=== PATIENT | female | born 1975 | race Caucasian/White ===

== ENCOUNTER 2020-08-16 07:00 | Inpatient (IN) | payer BC ==
[2020-08-16] MEDS ORDERED: Misoprostol 50 MCG (1/2 of 100 MCG) Tab VAG ONE ×2 (07:39→12:00)
[2020-08-16] MEDS ORDERED: ePHEDrine 50 MG/ML SDV IVPUSH PRN ×2 (08:25)
[2020-08-16] MEDS ORDERED: Sodium Chloride 0.9% 10 ML Syringe FLUSH PRN (08:25)
[2020-08-16] MEDS ORDERED: Ondansetron 4 MG/2 ML SDV IV PRN (08:25)
[2020-08-16] MEDS ORDERED: diphenhydrAMINE 50 MG/ML SDV IVPUSH PRN ×2 (08:25)
[2020-08-16] MEDS ORDERED: Naloxone 0.4 MG/ML SDV IVPUSH PRN (08:25)
[2020-08-16] MEDS ORDERED: Acetaminophen 325 MG Tab PO PRN (08:25)
[2020-08-16] MEDS ORDERED: Ropivacaine 200 MG in Premix Bag 1 BAG EPIDUR SCH (08:30)
--- NOTE | 2020-08-16 08:35 | PCM.LDHP ---
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: Social & Family History - Family History Family Medical History: No Pertinent Family History - Tobacco Use Tobacco Use Status *Q: Never Tobacco User - Caffeine Use Caffeine Use: Reports: Coffee H&P Review of Systems - Review of Systems: Review Of Systems: See Below General: Reports: No Symptoms HEENT: Reports: No Symptoms Pulmonary: Reports: No Symptoms Cardiovascular: Reports: No Symptoms Gastrointestinal: Reports: No Symptoms Genitourinary: Reports: No Symptoms Musculoskeletal: Reports: No Symptoms Skin: Reports: No Symptoms Psychiatric: Reports: No Symptoms Neurological: Reports: No Symptoms Hematologic/Lymphatic: Reports: No Symptoms Immunologic: Reports: No Symptoms L&D Exam - Exam Exam: See Below - OB Specific Contraction Intensity: Mild Movement: Active Heart Tones: Present Heart Rate (FHR) Variability: Moderate (6-25 bmp) Presentation: Vertex - Yo Score Yo Score Cervix Position: Midposition Yo Score Consistency: Soft Yo Score Effacement: 51-70% Yo Score Dilation: 1-2 cm Yo Score 's Station: -2 Yo Score Total: 7 - Exam General: Alert, Oriented, Cooperative HEENT: PERRLA, Conjunctiva Clear, EACs Clear, EOMI, Hearing Intact, Mucosa Moist & [place], Nares Patent, Normal Nasal Septum, Posterior Pharynx Clear, TMs Clear Neck: Supple, Trachea Midline Lungs: Clear to Auscultation, Normal Respiratory Effort Cardiovascular: Regular Rate, Regular Rhythm GI/Abdominal Exam: Normal Bowel Sounds, Soft, Non-Tender, No Organomegaly, No Distention, No Abnormal Bruit, No Mass, Pelvis Stable Rectal Exam: Normal Exam, Normal Rectal Tone Genitourinary: Normal external exam, Normal bimanual exam, Normal speculum exam Back Exam: Normal Inspection, Full Range of Motion Extremities: Normal Inspection, Normal Range of Motion, Non-Tender, No Pedal Edema, Normal Capillary Refill Skin: Warm, Dry, Intact Neurological: Cranial Nerves Intact, Reflexes Equal Bilateral Psychiatric: Alert, Normal Affect, Normal Mood - Patient Data Lab Results Last 24 hrs: Laboratory Results - last 24 hr 08/16/20 08/16/20 08/16/20 Range/Units 07:06 07:07 07:24 WBC 9.0 (4.5-11.0) K/uL RBC 4.60 (3.30-5.50) M/uL Hgb 10.6 L (12.0-15.0) g/dL Hct 35.4 L (36.0-48.0) % MCV 77 L (80-98) fL MCH 23 L (27-31) pg MCHC 30 L (32-36) % Plt Count 261 (150-400) K/uL Neut % (Auto) 63 (36-66) % Lymph % (Auto) 28 (24-44) % Ma[place] % (Auto) 8 H (2-6) % Eos % (Auto) 2 (2-4) % Baso % (Auto) 0 (0-1) % Urine Color Yellow (YELLOW) Urine Appearance Cloudy A (CLEAR) Urine pH 7.0 (5.0-8.0) Ur Specific [place] 1.025 (1.008-1.030) Urine Protein 100 H (NEGATIVE) mg/dL Urine Glucose (UA) Negative (NEGATIVE) mg/dL Urine Ketones Negative (NEGATIVE) mg/dL Urine Occult Blood Negative (NEGATIVE) Urine Nitrite Negative (NEGATIVE) Urine Bilirubin Negative (NEGATIVE) Urine Urobilinogen 0.2 (0.2-1.0) EU/dL Ur Leukocyte Esterase Small H (NEGATIVE) Urine RBC 0-5 (0-5) Urine WBC 20-30 H (0-5) Ur Epithelial Cells Moderate Amorphous Sediment Occasional Urine Bacteria Moderate Urine Mucus Occasional Urine Other Urine Opiates Screen Negative (NEGATIVE) Ur Oxycodone Screen Negative (NEGATIVE) Urine Methadone Screen Negative (NEGATIVE) Ur Propoxyphene Screen Negative (NEGATIVE) Ur Barbiturates Screen Negative (NEGATIVE) Ur Tricyclics Screen Negative (NEGATIVE) Ur Phencyclidine Scrn Negative (NEGATIVE) Ur Amphetamine Screen Negative (NEGATIVE) U Methamphetamines Scrn Negative (NEGATIVE) Urine MDMA Screen Negative (NEGATIVE) U Benzodiazepines Scrn Negative (NEGATIVE) U Cocaine Metab Screen Negative (NEGATIVE) U Marijuana (THC) Screen Negative (NEGATIVE) Result Diagrams: 08/16/20 07:24 - Problem List (1) Advanced maternal age (AMA), 40 years or greater SNOMED Code(s): 444260461 ICD Code: QLC3294 - Status: Acute Current Visit: Yes (2) Advanced maternal age in multigravida SNOMED Code(s): 989911992 ICD Code: O09.529 - SUPERVISION OF ELDERLY MULTIGRAVIDA, UNSPECIFIED TRIMESTER Status: Acute Current Visit: Yes Qualifiers: Trimester: third trimester Qualified Code(s): O09.523 - Supervision of elderly multigravida, third trimester (3) SNOMED Code(s): 04879469 ICD Code: Z34.90 - ENCNTR FOR SUPRVSN OF NORMAL , UNSP, UNSP TRIMESTER Status: Acute Current Visit: Yes Qualifiers: Weeks of gestation: 39 weeks Qualified Code(s): Z3A.39 - 39 weeks gestation of (4) Encounter for induction of labor SNOMED Code(s): 364557193 ICD Code: Z34.90 - ENCNTR FOR SUPRVSN OF NORMAL , UNSP, UNSP TR IMESTER Status: Acute Current Visit: Yes (5) Gestational hypertension affecting eighth SNOMED Code(s): 98855841 ICD Code: O13.9 - GESTATIONAL HTN W/O SIGNIFICANT PROTEINURIA, UNSP TRIMESTER; O09.40 - SUPERVISION OF W GRAND MULTIPARITY, UNSP TRIMESTER Status: Acute Current Visit: Yes Problem List Initiated/Reviewed/Updated: Yes Orders Last 24hrs: Active Orders 24 hr Category Date Time Status Patient Status [ADT] Routine ADT 08/16/20 08:25 Active Communication Order [RC] ASDIRECTED Care 08/16/20 08:25 Active Communication Order [RC] ASDIRECTED Care 08/16/20 08:25 Active Communication Order [RC] ROUTINE Care 08/16/20 08:25 Active Communication Order [RC] ROUTINE Care 08/16/20 08:25 Active Communication Order [RC] ROUTINE Care 08/16/20 08:25 Active Heart Tones [RC] PER UNIT ROUTINE Care 08/16/20 08:25 Active Non Stress Test [RC] Click to Edit Care 08/16/20 08:25 Active Local Anesthetic Infusion Pump [RC] ASDIRECTED Care 08/16/20 08:25 Active Notify Provider Vital Signs [RC] PRN Care 08/16/20 08:25 Active Notify Provider [RC] PRN Care 08/16/20 08:25 Active Oxygen Therapy [RC] ASDIRECTED Care 08/16/20 08:25 Active PCEA Epidural [RC] ASDIRECTED Care 08/16/20 08:25 Active PCEA Epidural [RC] ASDIRECTED Care 08/16/20 08:25 Active PCEA Epidural [RC] ASDIRECTED Care 08/16/20 08:26 Active Peripheral IV Care [RC] . DIRECTED Care 08/16/20 08:26 Active Pulse Oximetry [RC] ASDIRECTED Care 08/16/20 08:25 Active Up ad [place] [RC] ASDIRECTED Care 08/16/20 08:25 Active Vital Signs [RC] PER UNIT ROUTINE Care 08/16/20 08:25 Active Vital Signs [RC] PER UNIT ROUTINE Care 08/16/20 08:25 Active Regular Diet [DIET] Diet 08/16/20 Breakfast Active BPP wo NST [US] Routine Exams 08/16/20 07:00 Taken COMPREHENSIVE METABOLIC PN,CMP [CHEM] Routine Lab 08/16/20 08:15 Ordered LACTATE DEHYDROGENASE,LDH [CHEM] Routine Lab 08/16/20 08:15 Ordered Acetaminophen [TylenoL] Med 08/16/20 08:25 Active 650 mg PO Q4H PRN Lactated Ringers [Ringers, Lactated] 1,000 ml Med 08/16/20 08:25 Ordered IV .BOLUS Naloxone [Narcan] Med 08/16/20 08:25 Ordered 0.1 mg IVPUSH ASDIRECTED PRN Ondansetron [Zofran] Med 08/16/20 08:25 Ordered 4 mg IV Q4H PRN Ropivacaine [Naropin 0.2%] 200 mg Med 08/16/20 08:30 Ordered Premix Bag 1 bag EPIDUR ASDIRECTED Sodium Chloride 0.9% [Saline Flush] Med 08/16/20 08:25 Ordered 10 ml FLUSH ASDIRECTED PRN diphenhydrAMINE [Benadryl] Med 08/16/20 08:25 Ordered 25 mg IVPUSH Q6H PRN diphenhydrAMINE [Benadryl] Med 08/16/20 08:25 Ordered 50 mg IVPUSH Q6H PRN ePHEDrine [ePHEDrine sulfate] Med 08/16/20 08:25 Ordered 10 mg IVPUSH ASDIRECTED PRN ePHEDrine [ePHEDrine sulfate] Med 08/16/20 08:25 Ordered 10 mg IVPUSH ASDIRECTED PRN Epidural Catheter Management [OM.PC] Routine Oth 08/16/20 08:25 Ordered Epidural Catheter Management [OM.PC] Urgent Oth 08/16/20 08:25 Ordered Peripheral IV Insertion Pediatric [OM.PC] Routine Oth 08/16/20 08:25 Ordered Saline Lock Insert [OM.PC] Routine Oth 08/16/20 08:25 Ordered Resuscitation Status Routine Resus Stat 08/16/20 08:25 Ordered Medication Orders Acetaminophen (Tylenol) 650 mg PO Q4H PRN PRN Reason: Pain (Mild 1-3) and fever Diphenhydramine HCl (Benadryl) 25 mg IVPUSH Q6H PRN PRN Reason: Itching Diphenhydramine HCl (Benadryl) 50 mg IVPUSH Q6H PRN PRN Reason: Itching Ephedrine Sulfate (Ephedrine Sulfate) 10 mg IVPUSH ASDIRECTED PRN PRN Reason: Hypotension Ephedrine Sulfate (Ephedrine Sulfate) 10 mg IVPUSH ASDIRECTED PRN PRN Reason: Hypotension Ropivacaine 200 mg/ Premix 100 mls @ 0 mls/hr EPIDUR ASDIRECTED VLADIMIR Lactated Ringer's (Ringers, Lactated) 1,000 mls @ 999 mls/hr IV .BOLUS ONE Stop: 08/16/20 09:25 Naloxone HCl (Narcan) 0.1 mg IVPUSH ASDIRECTED PRN PRN Reason: Oversedation Ondansetron HCl (Zofran) 4 mg IV Q4H PRN PRN Reason: Nausea/Vomiting Sodium Chloride (Saline Flush) 10 ml FLUSH ASDIRECTED PRN PRN Reason: Keep Vein Open Assessment/Plan Comment:: 08/16/2020 45 yo here for a medical induction of labor for advanced maternal age at 39 2/7 weeks gestation Grand multipara Gestational Hypertension SVE-2/60/-2 Cytotec 50mcg placed vaginally Labs-A negative, Hep B neg, Hep C neg, HIV neg, RPR nonreactive, GBS neg, Rubella Immune, Hgb-10.6, Platelet-261 NST reactive BPP 04/29 Plan- Will monitor for active labor Will monitor FHTs Will draw a CMP and LDH If BP and labs require will initiate BP medications Patient may choose pain medication, if desires epidural may have Patient may be up ad nkechi Patient may get in tub Patient may eat regular diet till decides epidural Plan and anticipate a vaginal delivery
[2020-08-16] MEDS ORDERED: Lactated Ringers 1,000 ML IV ONE (09:00)
--- NOTE | 2020-08-16 10:01 | US ---
BPP wo NST INDICATION: induction, Adv maternal age COMPARISON: None FINDINGS: Single live IUP heart rate: 149 BPM. Biophysical profile score: 8/8. LUIS CARLOS: 13.5 cm. IMPRESSION: Normal biophysical profile score of 8/8.
[2020-08-16] MEDS ORDERED: Ropivacaine 100 ML ONE (15:07)
--- NOTE | 2020-08-16 15:30 | PCM.PNLD ---
Labor Progress Note - VS & Meds Vital Signs: Last Vital Signs Temp 36.8 C 08/16/20 11:40 Pulse 108 H 08/16/20 13:15 Resp 18 08/16/20 13:15 BP 132/88 08/16/20 13:15 Pulse Ox 96 08/16/20 13:15 Active Medications: Current Medications Acetaminophen (Tylenol) 650 mg PO Q4H PRN PRN Reason: Pain (Mild 1-3) and fever Diphenhydramine HCl (Benadryl) 25 mg IVPUSH Q6H PRN PRN Reason: Itching Diphenhydramine HCl (Benadryl) 50 mg IVPUSH Q6H PRN PRN Reason: Itching Ephedrine Sulfate (Ephedrine Sulfate) 10 mg IVPUSH ASDIRECTED PRN PRN Reason: Hypotension Ropivacaine 200 mg/ Premix 100 mls @ 0 mls/hr EPIDUR ASDIRECTED VLADIMIR Oxytocin/Sodium Chloride (Pitocin In Ns 20 Units/1,000 Ml) 20 unit in 1,000 mls @ 1.5 mls/hr IV TITRATE VLADIMIR; Protocol Last Titration: 08/16/20 14:29 Dose: 5 munits/min, 15 mls/hr Documented by: Naloxone HCl (Narcan) 0.1 mg IVPUSH ASDIRECTED PRN PRN Reason: Oversedation Ondansetron HCl (Zofran) 4 mg IV Q4H PRN PRN Reason: Nausea/Vomiting Sodium Chloride (Saline Flush) 10 ml FLUSH ASDIRECTED PRN PRN Reason: Keep Vein Open Discontinued Medications Lactated Ringer's (Ringers, Lactated) 1,000 mls @ 999 mls/hr IV .BOLUS ONE Stop: 08/16/20 10:00 Last Admin: 08/16/20 13:24 Dose: 999 mls/hr Documented by: Ropivacaine (Naropin 0.2%) Confirm Administered Dose 100 mls @ as directed .ROUTE .STK-MED ONE Stop: 08/16/20 15:08 Misoprostol (Cytotec) 50 mcg VAG ONETIME ONE Stop: 08/16/20 07:40 Last Admin: 08/16/20 08:03 Dose: 50 mcg Documented by: Misoprostol (Cytotec) 50 mcg VAG ONETIME ONE Stop: 08/16/20 12:01 Last Admin: 08/16/20 13:42 Dose: Not Given Documented by: - Uterine Contractions Uterine Monitoring Mode: External [place] Contraction Frequency (min): 2-4 Contraction Duration (sec): 60-90 Contraction Intensity: Moderate Uterine Resting Tone: Soft - Monitoring Heart Rate (FHR) Variability: Moderate (6-25 bmp) - Vaginal Exam Dilation (cm): 3 Effacement (Percent): 60 Sterile Vaginal Exam Performed By: Marjorie Tyson - Labor Progress (Free Text) Labor Progress: 08/16/2020 Patient progressing nicely SVE-3/60/-2 Ctx not super regular yet FHTs category one Plan- Will start pitocin now per protocol Continue to monitor FHTs Continue to monitor labor Epidural for pain control when patient requests Plan and anticipate a vaginal delivery
[2020-08-16] MEDS ORDERED: Sodium Chloride 0.9% 500 ML IV ONE (15:43)
[2020-08-16] MEDS ORDERED: Carboprost Tromethamine 250 MCG/1 ML Amp ONE (17:09)
[2020-08-16] MEDS ORDERED: Methylergonovine 0.2 MG/1 ML Amp ONE (17:09)
[2020-08-16] MEDS ORDERED: Misoprostol 200 MCG Tab ONE (17:09)
[2020-08-16] MEDS ORDERED: Lanolin 100% Cream 40 GM Tube TOP ONE (17:45)
[2020-08-16] MEDS ORDERED: Witch Hazel Medicated Pads 100/Jar TOP ONE (17:45)
[2020-08-16] MEDS ORDERED: Ibuprofen 200 MG Tab, 24 Tab Bulk Bottle PO PRN (17:45)
[2020-08-16] MEDS ORDERED: Docusate Sodium 100 MG Cap PO PRN (17:45)
[2020-08-16] MEDS ORDERED: Benzocaine 20% Top Spray 56 GM Bottle TOP ONE (17:45)
[2020-08-16] MEDS ORDERED: Acetaminophen 325 MG Tab, 50 Tab Bulk Bottle PO PRN (17:45)
--- NOTE | 2020-08-16 18:11 | PCM.DEL ---
L & D Note - General Info Date of Service: 08/16/20 Mother's Due Date: 08/21/20 - Delivery Note Labor: Spontaneous Cervical Ripening Method: Misoprostil Delivery Outcome: Livebirth Delivery Method: Spontaneous Vaginal Delivery-Single Infant Delivery Mode: Spontaneous Presentation: Left Occiput Anterior (BERTIN) Nuchal Cord: None Anesthesia Type: Epidural Amniotic Fluid Description: Clear Episiotomy Type: None Laceration: None Placenta: Intact, Spontaneous Cord: 3 Vessels Estimated Blood Loss: 200 Resuscitation Needed: No : Suctioned (5ml), Bulb Syringe, Stimulated, Warmed, [place] Used Provider: Marjorie Tyson Score 1 min: 8 Score 5 min: 9 Second Stage Interventions: Reports: Second Nurse Assessed Progress of Descent, Second Nurse Reviewed Contraction Pattern, Second Nurse Reviewed Heart Tones, Encouragement Given, Pushing Effectively, Pushing, McRobert's Position, Pushing, Stirrups/Leg Supports Delivery Comments (Free Text/Narrative):: 08/16/2020 45 yo delivered a viable female at 39 2/7 weeks gestation at 1725 on 08/16/2020 in BERTIN position over an intact perineum with minimal pushing. was delivered and then placed on prewarmed blanket on mother abdomen. was dried and stimulated and bulb suctioned. Delayed cord clamping was done for approximately 90 seconds then cord was double clamped and cut by father of . was then brought up to mothers chest. began to pink in color and cry. APGARS-8/9, weight-8lbs 6oz, length-21 inches. Placenta spontaneously came intact at 1730. Three vessel cord, EBL-200ml, no lacerations of vagina, perineum, labia, cervix, or rectum noted. Infant now skin to skin with mother in labor and delivery room and both stable at this time. Stages of labor- [id number] - General Info Date of Service: 08/16/20 Functional Status: Reports: Pain Controlled - Review of Systems General: Reports: No Symptoms HEENT: Reports: No Symptoms Pulmonary: Reports: No Symptoms Cardiovascular: Reports: No Symptoms Gastrointestinal: Reports: No Symptoms Genitourinary: Reports: No Symptoms Musculoskeletal: Reports: No Symptoms Skin: Reports: No Symptoms Neurological: Reports: No Symptoms Psychiatric: Reports: No Symptoms - Patient Data Vitals - Most Recent: Last Vital Signs Temp 36.8 C 08/16/20 11:40 Pulse 127 H 08/16/20 15:35 Resp 18 08/16/20 15:35 BP 122/70 08/16/20 16:55 Pulse Ox 97 08/16/20 15:35 I&O - Last 24 Hours: Intake & Output 08/16/20 08/16/20 08/16/20 06:59 14:59 22:59 Intake Total 1500 Balance 1500 Lab Results Last 24 Hours: Laboratory Results - last 24 hr 08/16/20 08/16/20 08/16/20 Range/Units 07:06 07:07 07:24 WBC 9.0 (4.5-11.0) K/uL RBC 4.60 (3.30-5.50) M/uL Hgb 10.6 L (12.0-15.0) g/dL Hct 35.4 L (36.0-48.0) % MCV 77 L (80-98) fL MCH 23 L (27-31) pg MCHC 30 L (32-36) % Plt Count 261 (150-400) K/uL Neut % (Auto) 63 (36-66) % Lymph % (Auto) 28 (24-44) % [place] % (Auto) 8 H (2-6) % Eos % (Auto) 2 (2-4) % Baso % (Auto) 0 (0-1) % Sodium (140-148) mmol/L Potassium (3.6-5.2) mmol/L Chloride (100-108) mmol/L Carbon Dioxide (21-32) mmol/L Anion Gap (5.0-14.0) mmol/L BUN (7-18) mg/dL Creatinine (0.6-1.0) mg/dL Est Cr Clr Drug Dosing Estimated GFR (MDRD) (>60) Glucose (74-106) mg/dL Calcium (8.5-10.1) mg/dL Total Bilirubin (0.2-1.0) mg/dL AST (15-37) U/L ALT (12-78) U/L Alkaline Phosphatase (46-116) U/L Lactate Dehydrogenase (82-234) U/L Total Protein (6.4-8.2) g/dL Albumin (3.4-5.0) g/dL Globulin (2.3-3.5) g/dL Albumin/Globulin Ratio (1.2-2.2) Urine Color Yellow (YELLOW) Urine Appearance Cloudy A (CLEAR) Urine pH 7.0 (5.0-8.0) Ur Specific [place] 1.025 (1.008-1.030) Urine Protein 100 H (NEGATIVE) mg/dL Urine Glucose (UA) Negative (NEGATIVE) mg/dL Urine Ketones Negative (NEGATIVE) mg/dL Urine Occult Blood Negative (NEGATIVE) Urine Nitrite Negative (NEGATIVE) Urine Bilirubin Negative (NEGATIVE) Urine Urobilinogen 0.2 (0.2-1.0) EU/dL Ur Leukocyte Esterase Small H (NEGATIVE) Urine RBC 0-5 (0-5) Urine WBC 20-30 H (0-5) Ur Epithelial Cells Moderate Amorphous Sediment Occasional Urine Bacteria Moderate Urine Mucus Occasional Urine Other Ur Random Creatinine (20.0-370.0) mg/dL U Random Total Protein (6.0-11.9) mg/dL Protein/Creatinin Ratio (21.0-161.0) mg/g Urine Opiates Screen Negative (NEGATIVE) Ur Oxycodone Screen Negative (NEGATIVE) Urine Methadone Screen Negative (NEGATIVE) Ur Propoxyphene Screen Negative (NEGATIVE) Ur Barbiturates Screen Negative (NEGATIVE) Ur Tricyclics Screen Negative (NEGATIVE) Ur Phencyclidine Scrn Negative (NEGATIVE) Ur Amphetamine Screen Negative (NEGATIVE) U Methamphetamines Scrn Negative (NEGATIVE) Urine MDMA Screen Negative (NEGATIVE) U Benzodiazepines Scrn Negative (NEGATIVE) U Cocaine Metab Screen Negative (NEGATIVE) U Marijuana (THC) Screen Negative (NEGATIVE) 08/16/20 08/16/20 Range/Units 08:15 09:50 WBC (4.5-11.0) K/uL RBC (3.30-5.50) M/uL Hgb (12.0-15.0) g/dL Hct (36.0-48.0) % MCV (80-98) fL MCH (27-31) pg MCHC (32-36) % Plt Count (150-400) K/uL Neut % (Auto) (36-66) % Lymph % (Auto) (24-44) % [place] % (Auto) (2-6) % Eos % (Auto) (2-4) % Baso % (Auto) (0-1) % Sodium 137 L (140-148) mmol/L Potassium 4.1 (3.6-5.2) mmol/L Chloride 102 (100-108) mmol/L Carbon Dioxide 22 (21-32) mmol/L Anion Gap 17.1 H (5.0-14.0) mmol/L BUN 9 (7-18) mg/dL Creatinine 0.8 (0.6-1.0) mg/dL Est Cr Clr Drug Dosing TNP Estimated GFR (MDRD) > 60 (>60) Glucose 122 H (74-106) mg/dL Calcium 8.4 L (8.5-10.1) mg/dL Total Bilirubin 0.9 (0.2-1.0) mg/dL AST 17 (15-37) U/L ALT 15 (12-78) U/L Alkaline Phosphatase 140 H (46-116) U/L Lactate Dehydrogenase 213 (82-234) U/L Total Protein 6.3 L (6.4-8.2) g/dL Albumin 2.8 L (3.4-5.0) g/dL Globulin 3.5 (2.3-3.5) g/dL Albumin/Globulin Ratio 0.8 L (1.2-2.2) Urine Color (YELLOW) Urine Appearance (CLEAR) Urine pH (5.0-8.0) Ur Specific [place] (1.008-1.030) Urine Protein (NEGATIVE) mg/dL Urine Glucose (UA) (NEGATIVE) mg/dL Urine Ketones (NEGATIVE) mg/dL Urine Occult Blood (NEGATIVE) Urine Nitrite (NEGATIVE) Urine Bilirubin (NEGATIVE) Urine Urobilinogen (0.2-1.0) EU/dL Ur Leukocyte Esterase (NEGATIVE) Urine RBC (0-5) Urine WBC (0-5) Ur Epithelial Cells Amorphous Sediment Urine Bacteria Urine Mucus Urine Other Ur Random Creatinine 210.6 (20.0-370.0) mg/dL U Random Total Protein 88.8 H (6.0-11.9) mg/dL Protein/Creatinin Ratio 421.7 H (21.0-161.0) mg/g Urine Opiates Screen (NEGATIVE) Ur Oxycodone Screen (NEGATIVE) Urine Methadone Screen (NEGATIVE) Ur Propoxyphene Screen (NEGATIVE) Ur Barbiturates Screen (NEGATIVE) Ur Tricyclics Screen (NEGATIVE) Ur Phencyclidine Scrn (NEGATIVE) Ur Amphetamine Screen (NEGATIVE) U Methamphetamines Scrn (NEGATIVE) Urine MDMA Screen (NEGATIVE) U Benzodiazepines Scrn (NEGATIVE) U Cocaine Metab Screen (NEGATIVE) U Marijuana (THC) Screen (NEGATIVE) Med Orders - Current: Current Medications Acetaminophen (Tylenol) 650 mg PO Q4H PRN PRN Reason: Pain (Mild 1-3) and fever Acetaminophen (Tylenol Bulk Bottle) 0 mg PO Q4H PRN PRN Reason: Pain Diphenhydramine HCl (Benadryl) 25 mg IVPUSH Q6H PRN PRN Reason: Itching Diphenhydramine HCl (Benadryl) 50 mg IVPUSH Q6H PRN PRN Reason: Itching Docusate Sodium (Colace) 100 mg PO BID PRN PRN Reason: Constipation Ephedrine Sulfate (Ephedrine Sulfate) 10 mg IVPUSH ASDIRECTED PRN PRN Reason: Hypotension Ropivacaine 200 mg/ Premix 100 mls @ 0 mls/hr EPIDUR ASDIRECTED VLADIMIR Oxytocin/Sodium Chloride (Pitocin In Ns 20 Units/1,000 Ml) 20 unit in 1,000 mls @ 1.5 mls/hr IV TITRATE VLADIMIR; Protocol Last Titration: 08/16/20 16:36 Dose: 4 munits/min, 12 mls/hr Documented by: Ibuprofen (Motrin Bulk Bottle) 600 mg PO Q6H PRN PRN Reason: Pain Naloxone HCl (Narcan) 0.1 mg IVPUSH ASDIRECTED PRN PRN Reason: Oversedation Ondansetron HCl (Zofran) 4 mg IV Q4H PRN PRN Reason: Nausea/Vomiting Sodium Chloride (Saline Flush) 10 ml FLUSH ASDIRECTED PRN PRN Reason: Keep Vein Open Discontinued Medications Benzocaine (Xvyg-O-Xwtvkyh 20% [place]) 0 gm TOP ONETIME ONE Stop: 08/16/20 17:46 Carboprost Tromethamine (Hemabate Ds) Confirm Administered Dose 250 mcg .ROUTE .STK-MED ONE Stop: 08/16/20 17:10 Emollient Ointment (Lansinoh Hpa) 1 gm TOP ONETIME ONE Stop: 08/16/20 17:46 Lactated Ringer's (Ringers, Lactated) 1,000 mls @ 999 mls/hr IV .BOLUS ONE Stop: 08/16/20 10:00 Last Admin: 08/16/20 13:24 Dose: 999 mls/hr Documented by: Ropivacaine (Naropin 0.2%) Confirm Administered Dose 100 mls @ as directed .ROUTE .STK-MED ONE Stop: 08/16/20 15:08 Sodium Chloride (Normal Saline) 500 mls @ 999 mls/hr IV BOLUS ONE Stop: 08/16/20 16:13 Last Admin: 08/16/20 15:45 Dose: 999 mls/hr Documented by: Methylergonovine Maleate (Methergine) Confirm Administered Dose 0.2 mg .ROUTE .STK-MED ONE Stop: 08/16/20 17:10 Misoprostol (Cytotec) 50 mcg VAG ONETIME ONE Stop: 08/16/20 07:40 Last Admin: 08/16/20 08:03 Dose: 50 mcg Documented by: Misoprostol (Cytotec) 50 mcg VAG ONETIME ONE Stop: 08/16/20 12:01 Last Admin: 08/16/20 13:42 Dose: Not Given Documented by: Misoprostol (Cytotec) Confirm Administered Dose 800 mcg .ROUTE .STK-MED ONE Stop: 08/16/20 17:10 Evelyn Noe (Tucks) 1 pad TOP ONETIME ONE Stop: 08/16/20 17:46 - Exam General: Alert, Oriented, Cooperative HEENT: Pupils Equal, Pupils Reactive, EOMI, Mucous Membr. Moist/[place] Neck: Supple Lungs: Clear to Auscultation, Normal Respiratory Effort Cardiovascular: Regular Rate, Regular Rhythm GI/Abdominal Exam: Normal Bowel Sounds, Soft, Non-Tender, No Organomegaly, No Distention, No Abnormal Bruit, No Mass, Pelvis Stable (Female) Exam: Normal External Exam, Normal Speculum Exam, Normal Bimanual Exam Back Exam: Normal Inspection, Full Range of Motion Extremities: Normal Inspection, Normal Range of Motion, Non-Tender, No Pedal Edema, Normal Capillary Refill Skin: Warm, Dry, Intact Wound/Incisions: Healing Well Neurological: No New Focal Deficit Psy/Mental Status: Alert, Normal Affect, Normal Mood - Problem List & Annotations (1) Advanced maternal age (AMA), 40 years or greater SNOMED Code(s): 149065015 Code(s): [id number] - Status: Acute Current Visit: Yes (2) Advanced maternal age in multigravida SNOMED Code(s): 093122782 Code(s): O09.529 - SUPERVISION OF ELDERLY MULTIGRAVIDA, UNSPECIFIED TRIMESTER Status: Acute Current Visit: Yes Qualifiers: Trimester: third trimester Qualified Code(s): O09.523 - Supervision of elderly multigravida, third trimester (3) SNOMED Code(s): 30952885 Code(s): Z34.90 - ENCNTR FOR SUPRVSN OF NORMAL , UNSP, UNSP TRIMESTER Status: Acute Current Visit: Yes Qualifiers: Weeks of gestation: 39 weeks Qualified Code(s): Z3A.39 - 39 weeks gestation of (4) Encounter for induction of labor SNOMED Code(s): 672596238 Code(s): Z34.90 - ENCNTR FOR SUPRVSN OF NORMAL , UNSP, UNSP TRIMESTER Status: Acute Current Visit: Yes (5) Gestational hypertension affecting eighth SNOMED Code(s): 03066220 Code(s): O13.9 - GESTATIONAL HTN W/O SIGNIFICANT PROTEINURIA, UNSP TRIMESTER; O09.40 - SUPERVISION OF W GRAND MULTIPARITY, UNSP TRIMESTER Status: Acute Current Visit: Yes (6) Normal vaginal delivery of eighth SNOMED Code(s): 18621511, 044779426 Code(s): O80 - ENCOUNTER FOR FULL-TERM UNCOMPLICATED DELIVERY Status: Acute Current Visit: Yes (7) () SNOMED Code(s): 055570514 Code(s): Z78.9 - OTHER SPECIFIED HEALTH STATUS Status: Acute Current Visit: Yes - Problem List Review Problem List Initiated/Reviewed/Updated: Yes - My Orders Last 24 Hours: My Active Orders 08/16/20 Breakfast Regular Diet [DIET] 08/16/20 08:25 Patient Status [ADT] Routine Communication Order [RC] ASDIRECTED Communication Order [RC] ASDIRECTED Communication Order [RC] ROUTINE Communication Order [RC] ROUTINE Communication Order [RC] ROUTINE Heart Tones [RC] PER UNIT ROUTINE Non Stress Test [RC] Click to Edit Local Anesthetic Infusion Pump [RC] ASDIRECTED Notify Provider Vital Signs [RC] PRN Notify Provider [RC] PRN Oxygen Therapy [RC] ASDIRECTED PCEA Epidural [RC] ASDIRECTED PCEA Epidural [RC] ASDIRECTED Pulse Oximetry [RC] ASDIRECTED Up ad Thu [RC] ASDIRECTED Vital Signs [RC] PER UNIT ROUTINE Vital Signs [RC] PER UNIT ROUTINE Acetaminophen [TylenoL] 650 mg PO Q4H PRN Naloxone [Narcan] 0.1 mg IVPUSH ASDIRECTED PRN Ondansetron [Zofran] 4 mg IV Q4H PRN Sodium Chloride 0.9% [Saline Flush] 10 ml FLUSH ASDIRECTED PRN diphenhydrAMINE [Benadryl] 25 mg IVPUSH Q6H PRN diphenhydrAMINE [Benadryl] 50 mg IVPUSH Q6H PRN ePHEDrine [ePHEDrine sulfate] 10 mg IVPUSH ASDIRECTED PRN Epidural Catheter Management [OM.PC] Routine Epidural Catheter Management [OM.PC] Urgent Peripheral IV Insertion Pediatric [OM.PC] Routine Saline Lock Insert [OM.PC] Routine Resuscitation Status Routine 08/16/20 08:26 PCEA Epidural [RC] ASDIRECTED Peripheral IV Care [RC] . DIRECTED 08/16/20 08:30 Ropivacaine [Naropin 0.2%] 200 mg Premix Bag 1 bag EPIDUR ASDIRECTED 08/16/20 12:30 Oxytocin/Normal Saline [Pitocin in NS 20 Units/1,000 ML] 20 unit in 1,000 ml IV TITRATE 08/16/20 15:34 Urinary Catheter Assessment [RC] ASDIRECTED 08/16/20 15:45 Insert [place] Catheter [Insert Urinary Catheter] [OM.PC] Q24H 08/16/20 17:45 Patient Status [ADT] Routine Ambulate [RC] PER UNIT ROUTINE Communication Order [RC] PER UNIT ROUTINE Vital Signs [RC] PFP Acetaminophen [Tylenol Bulk Bottle] See Dose Instructions PO Q4H PRN Docusate Sodium [Colace] 100 mg PO BID PRN Ibuprofen [Motrin Bulk Bottle] 600 mg PO Q6H PRN Assess Lochia [WOMSER] Per Unit Routine Assess Uterine Involution [WOMSER] Per Unit Routine DVT/VTE Prophylaxis Reflex [OM.PC] Routine 08/16/20 17:47 VTE/DVT Education [RC] Click to Edit Perineal Care [OM.PC] Per Unit Routine 08/17/20 06:00 CBC WITH AUTO DIFF [HEME] Routine - Assessment Assessment:: 08/16/2020 without complications A negative needs Rhogam workup Desires 24 hr discharge home - Plan Plan:: 08/16/2020 45 yo here for a medical induction of labor for advanced maternal age at 39 2/7 weeks gestation Grand multipara Gestational Hypertension SVE-2/60/-2 Cytotec 50mcg placed vaginally Labs-A negative, Hep B neg, Hep C neg, HIV neg, RPR nonreactive, GBS neg, Rubella Immune, Hgb-10.6, Platelet-261 NST reactive BPP 04/29 Plan- Will monitor for active labor Will monitor FHTs Will draw a CMP and LDH If BP and labs require will initiate BP medications Patient may choose pain medication, if desires epidural may have Patient may be up ad thu Patient may get in tub Patient may eat regular diet till decides epidural Plan and anticipate a vaginal delivery 08/16/2020 Routine cares Encourage and support Monitor bleeding closely Plan discharge at 24-48 hours
[2020-08-16] MEDS ORDERED: Labetalol 100 MG Tab PO ONE (20:44)
--- NOTE | 2020-08-17 01:15 | ANES ---
DATE OF SERVICE: 08/16/2020 INDICATION: I was called by the OB Department this early afternoon for a labor induction, the patient requesting a labor epidural. I was at the bedside at approximately 1435. This is patient's 8th baby, has had epidurals on the last 2 without any difficulties other than her very 1st one, it was strictly a left-sided epidural that they had to redo. Last one went without difficulty. The patient is healthy, not on any blood thinners. Allergies were reviewed. Risks and benefits, including risk for infection, risk for spinal headache were discussed with the patient. The patient verbalizes her understanding and wishes to proceed with the labor epidural at this time. Platelet count was also noted to be 261. DESCRIPTION OF PROCEDURE: The patient was then sat at the edge of the bed. Betadine prep x3 to lumbar region was done. Sterile drape was placed. 1% lidocaine skin wheal and deep was done. A 17-gauge Tuohy needle was inserted at approximately the L4-L5 position. Loss of resistance was easily achieved at approximately 6 cm. Catheter was then easily placed. The Tuohy needle was withdrawn. Catheter was then pulled back and secured at approximately 15 cm. After catheter was secured, I proceeded to give the patient a 4 mL test dose and then laid in the supine position with head of the bed slightly elevated and left uterine displacement. After several minutes after the test dose, the patient showed no signs of local anesthetic toxicity or subarachnoid block. I then proceeded to give the patient a 12 mL bolus of 0.2% ropivacaine via the epidural and started her on a 0.2 ropivacaine drip at 12 mL/hour via the epidural. The patient tolerated the entire procedure without difficulty. The patient was able to maintain blood pressure without difficulty also after bolus. We will be available as needed for any other concerns regarding the epidural. Humberto Dominguez CRNA /[id number]
[2020-08-17] MEDS ORDERED: Labetalol 100 MG Tab PO SCH (09:00)
--- NOTE | 2020-08-17 10:01 | PCM.PNPP ---
- General Info Date of Service: 08/17/20 Functional Status: Reports: Pain Controlled - Review of Systems General: Reports: No Symptoms HEENT: Reports: No Symptoms Pulmonary: Reports: No Symptoms Cardiovascular: Reports: No Symptoms Gastrointestinal: Reports: No Symptoms Genitourinary: Reports: No Symptoms Musculoskeletal: Reports: No Symptoms Skin: Reports: No Symptoms Neurological: Reports: No Symptoms Psychiatric: Reports: No Symptoms - General Info Date of Service: 08/17/20 - Patient Data Vital Signs - Most Recent: Last Vital Signs Temp 35.9 C L 08/17/20 07:37 Pulse 83 08/17/20 09:01 Resp 18 08/17/20 07:37 BP 126/68 08/17/20 09:01 Pulse Ox 98 08/17/20 07:37 Lab Results - Last 24 Hours: Laboratory Results - last 24 hr 08/16/20 08/16/20 08/17/20 Range/Units 09:50 20:06 06:56 WBC 9.5 (4.5-11.0) K/uL RBC 3.97 (3.30-5.50) M/uL Hgb 9.1 L (12.0-15.0) g/dL Hct 31.1 L (36.0-48.0) % MCV 78 L (80-98) fL MCH 23 L (27-31) pg MCHC 29 L (32-36) % Plt Count 219 (150-400) K/uL Neut % (Auto) 67 H (36-66) % Lymph % (Auto) 23 L (24-44) % [place] % (Auto) 9 H (2-6) % Eos % (Auto) 1 L (2-4) % Baso % (Auto) 0 (0-1) % Sodium (140-148) mmol/L Potassium (3.6-5.2) mmol/L Chloride (100-108) mmol/L Carbon Dioxide (21-32) mmol/L Anion Gap (5.0-14.0) mmol/L BUN (7-18) mg/dL Creatinine (0.6-1.0) mg/dL Est Cr Clr Drug Dosing Estimated GFR (MDRD) (>60) Glucose (74-106) mg/dL Calcium (8.5-10.1) mg/dL Total Bilirubin (0.2-1.0) mg/dL AST (15-37) U/L ALT (12-78) U/L Alkaline Phosphatase (46-116) U/L Lactate Dehydrogenase (82-234) U/L Total Protein (6.4-8.2) g/dL Albumin (3.4-5.0) g/dL Globulin (2.3-3.5) g/dL Albumin/Globulin Ratio (1.2-2.2) Ur Random Creatinine 210.6 (20.0-370.0) mg/dL U Random Total Protein 88.8 H (6.0-11.9) mg/dL Protein/Creatinin Ratio 421.7 H (21.0-161.0) mg/g Blood Type A NEGATIVE Gel Antibody Screen Negative Rhogam Indicated Yes, baby rh pos 08/17/20 Range/Units 08:19 WBC (4.5-11.0) K/uL RBC (3.30-5.50) M/uL Hgb (12.0-15.0) g/dL Hct (36.0-48.0) % MCV (80-98) fL MCH (27-31) pg MCHC (32-36) % Plt Count (150-400) K/uL Neut % (Auto) (36-66) % Lymph % (Auto) (24-44) % [place] % (Auto) (2-6) % Eos % (Auto) (2-4) % Baso % (Auto) (0-1) % Sodium 140 (140-148) mmol/L Potassium 4.4 (3.6-5.2) mmol/L Chloride 108 (100-108) mmol/L Carbon Dioxide 21 (21-32) mmol/L Anion Gap 11.0 (5.0-14.0) mmol/L BUN 8 (7-18) mg/dL Creatinine 0.9 (0.6-1.0) mg/dL Est Cr Clr Drug Dosing TNP Estimated GFR (MDRD) > 60 (>60) Glucose 84 (74-106) mg/dL Calcium 8.2 L (8.5-10.1) mg/dL Total Bilirubin 0.5 (0.2-1.0) mg/dL AST 13 L (15-37) U/L ALT 13 (12-78) U/L Alkaline Phosphatase 102 (46-116) U/L Lactate Dehydrogenase 195 (82-234) U/L Total Protein 5.4 L (6.4-8.2) g/dL Albumin 2.1 L (3.4-5.0) g/dL Globulin 3.3 (2.3-3.5) g/dL Albumin/Globulin Ratio 0.6 L (1.2-2.2) Ur Random Creatinine (20.0-370.0) mg/dL U Random Total Protein (6.0-11.9) mg/dL Protein/Creatinin Ratio (21.0-161.0) mg/g Blood Type Gel Antibody Screen Rhogam Indicated Med Orders - Current: Current Medications Acetaminophen (Tylenol Bulk Bottle) 0 mg PO Q4H PRN PRN Reason: Pain Last Admin: 08/16/20 18:48 Dose: 500 mg Documented by: Diphenhydramine HCl (Benadryl) 25 mg IVPUSH Q6H PRN PRN Reason: Itching Diphenhydramine HCl (Benadryl) 50 mg IVPUSH Q6H PRN PRN Reason: Itching Docusate Sodium (Colace) 100 mg PO BID PRN PRN Reason: Constipation Ephedrine Sulfate (Ephedrine Sulfate) 10 mg IVPUSH ASDIRECTED PRN PRN Reason: Hypotension Ropivacaine 200 mg/ Premix 100 mls @ 0 mls/hr EPIDUR ASDIRECTED VLADIMIR Oxytocin/Sodium Chloride (Pitocin In Ns 20 Units/1,000 Ml) 20 unit in 1,000 mls @ 1.5 mls/hr IV TITRATE VLADIMIR; Protocol Last Titration: 08/16/20 17:28 Dose: 333 munits/min, 999 mls/hr Documented by: Ibuprofen (Motrin Bulk Bottle) 600 mg PO Q6H PRN PRN Reason: Pain Last Admin: 08/16/20 18:48 Dose: 600 mg Documented by: Labetalol HCl (Normodyne) 100 mg PO BID VLADIMIR Last Admin: 08/17/20 09:01 Dose: 100 mg Documented by: Naloxone HCl (Narcan) 0.1 mg IVPUSH ASDIRECTED PRN PRN Reason: Oversedation Ondansetron HCl (Zofran) 4 mg IV Q4H PRN PRN Reason: Nausea/Vomiting Sodium Chloride (Saline Flush) 10 ml FLUSH ASDIRECTED PRN PRN Reason: Keep Vein Open Discontinued Medications Acetaminophen (Tylenol) 650 mg PO Q4H PRN PRN Reason: Pain (Mild 1-3) and fever Benzocaine (Ilnb-V-Bxlprgy 20% [place]) 0 gm TOP ONETIME ONE Stop: 08/16/20 17:46 Last Admin: 08/16/20 18:47 Dose: 1 spr Documented by: Carboprost Tromethamine (Hemabate Ds) Confirm Administered Dose 250 mcg .ROUTE .STK-MED ONE Stop: 08/16/20 17:10 Last Admin: 08/16/20 19:01 Dose: Not Given Documented by: Emollient Ointment (Lansinoh Hpa) 1 gm TOP ONETIME ONE Stop: 08/16/20 17:46 Last Admin: 08/16/20 18:47 Dose: 1 applic Documented by: Lactated Ringer's (Ringers, Lactated) 1,000 mls @ 999 mls/hr IV .BOLUS ONE Stop: 08/16/20 10:00 Last Admin: 08/16/20 13:24 Dose: 999 mls/hr Documented by: Ropivacaine (Naropin 0.2%) Confirm Administered Dose 100 mls @ as directed .ROUTE .STK-MED ONE Stop: 08/16/20 15:08 Sodium Chloride (Normal Saline) 500 mls @ 999 mls/hr IV BOLUS ONE Stop: 08/16/20 16:13 Last Admin: 08/16/20 15:45 Dose: 999 mls/hr Documented by: Labetalol HCl (Normodyne) 100 mg PO ONETIME ONE Stop: 08/16/20 20:45 Last Admin: 08/16/20 21:08 Dose: 100 mg Documented by: Methylergonovine Maleate (Methergine) Confirm Administered Dose 0.2 mg .ROUTE .STK-MED ONE Stop: 08/16/20 17:10 Last Admin: 08/16/20 19:01 Dose: Not Given Documented by: Misoprostol (Cytotec) 50 mcg VAG ONETIME ONE Stop: 08/16/20 07:40 Last Admin: 08/16/20 08:03 Dose: 50 mcg Documented by: Misoprostol (Cytotec) 50 mcg VAG ONETIME ONE Stop: 08/16/20 12:01 Last Admin: 08/16/20 13:42 Dose: Not Given Documented by: Misoprostol (Cytotec) Confirm Administered Dose 800 mcg .ROUTE .STK-MED ONE Stop: 08/16/20 17:10 Last Admin: 08/16/20 19:01 Dose: Not Given Documented by: Evelyn Mcdaniel) 1 pad TOP ONETIME ONE Stop: 08/16/20 17:46 Last Admin: 08/16/20 18:47 Dose: 1 pad Documented by: - Interaction Disposition, : Xenia in Room with Family Infant Interaction: Holding Infant Feeding: Breastfed ; Nursed Well Support Person: - Recovery Exam Fundal Tone: Firm Fundal Level: 1 Fingerbreadths Above Umbilicus Fundal Placement: Midline Lochia Amount: Moderate Lochia Color: Rubra/Red Perineum Description: Intact, Minimal Bruising/Swelling Episiotomy/Laceration: None Bladder Status: Voiding - Exam General: Alert, Oriented, Cooperative HEENT: Pupils Equal, Pupils Reactive, EOMI, Mucous Membr. Moist/[place] Neck: Supple Lungs: Clear to Auscultation, Normal Respiratory Effort Cardiovascular: Regular Rate, Regular Rhythm GI/Abdominal Exam: Normal Bowel Sounds, Soft, Non-Tender, No Organomegaly, No Distention, No Abnormal Bruit, No Mass, Pelvis Stable Extremities: Normal Inspection, Normal Range of Motion, Non-Tender, No Pedal Ed [place], Normal Capillary Refill Skin: Warm, Dry, Intact Neurological: No New Focal Deficit Psy/Mental Status: Alert, Normal Affect, Normal Mood - Problem List & Annotations (1) Advanced maternal age (AMA), 40 years or greater SNOMED Code(s): 979505227 Code(s): UZY0081 - Status: Acute Current Visit: Yes (2) Advanced maternal age in multigravida SNOMED Code(s): 356472807 Code(s): O09.529 - SUPERVISION OF ELDERLY MULTIGRAVIDA, UNSPECIFIED TRIMESTER Status: Acute Current Visit: Yes Qualifiers: Trimester: third trimester Qualified Code(s): O09.523 - Supervision of elderly multigravida, third trimester (3) SNOMED Code(s): 50063304 Code(s): Z34.90 - ENCNTR FOR SUPRVSN OF NORMAL , UNSP, UNSP TRIMESTER Status: Acute Current Visit: Yes Qualifiers: Weeks of gestation: 39 weeks Qualified Code(s): Z3A.39 - 39 weeks gestation of (4) Encounter for induction of labor SNOMED Code(s): 772923785 Code(s): Z34.90 - ENCNTR FOR SUPRVSN OF NORMAL , UNSP, UNSP TRIMESTER Status: Acute Current Visit: Yes (5) Gestational hypertension affecting eighth SNOMED Code(s): 41910526 Code(s): O13.9 - GESTATIONAL HTN W/O SIGNIFICANT PROTEINURIA, UNSP TRIMESTER; O09.40 - SUPERVISION OF W GRAND MULTIPARITY, UNSP TRIMESTER Status: Acute Current Visit: Yes (6) Normal vaginal delivery of eighth SNOMED Code(s): 42578248, 952246060 Code(s): O80 - ENCOUNTER FOR FULL-TERM UNCOMPLICATED DELIVERY Status: Acute Current Visit: Yes (7) () SNOMED Code(s): 787148428 Code(s): Z78.9 - OTHER SPECIFIED HEALTH STATUS Status: Acute Current Visit: Yes - Problem List Review Problem List Initiated/Reviewed/Updated: Yes - My Orders Last 24 Hours: My Active Orders 08/16/20 12:30 Oxytocin/Normal Saline [Pitocin in NS 20 Units/1,000 ML] 20 unit in 1,000 ml IV TITRATE 08/16/20 15:45 Insert [place] Catheter [Insert Urinary Catheter] [OM.PC] Q24H 08/16/20 17:45 Patient Status [ADT] Routine Ambulate [RC] PER UNIT ROUTINE Acetaminophen [Tylenol Bulk Bottle] See Dose Instructions PO Q4H PRN Docusate Sodium [Colace] 100 mg PO BID PRN Ibuprofen [Motrin Bulk Bottle] 600 mg PO Q6H PRN Assess Lochia [WOMSER] Per Unit Routine Assess Uterine Involution [WOMSER] Per Unit Routine DVT/VTE Prophylaxis Reflex [OM.PC] Routine 08/16/20 17:47 Perineal Care [OM.PC] Per Unit Routine 08/16/20 20:06 SCREEN [BBK] Routine PATIENT RETYPE [BBK] Routine RHOGAM, [RHIG WORKUP, ] [BBK] Routine 08/16/20 20:52 RH IMMUNE GLOBULIN [BBK] Routine 08/17/20 09:00 Labetalol [Normodyne] 100 mg PO BID 08/18/20 06:00 COMPREHENSIVE METABOLIC PN,CMP [CHEM] Routine LACTATE DEHYDROGENASE,LDH [CHEM] Routine - Assessment Assessment:: 08/16/2020 without complications A negative needs Rhogam workup Desires 24 hr discharge home 08/17/2020 Day One Preeclampsia on admission Labs currently trending down BP more stable on Labetalol Fundus firm and bleeding decreasing well Rhogam given Desires discharge home today at 24 hours - Plan Plan:: 08/16/2020 45 yo here for a medical induction of labor for advanced maternal age at 39 2/7 weeks gestation Grand multipara Gestational Hypertension SVE-2/60/-2 Cytotec 50mcg placed vaginally Labs-A negative, Hep B neg, Hep C neg, HIV neg, RPR nonreactive, GBS neg, Rubella Immune, Hgb-10.6, Platelet-261 NST reactive BPP 04/29 Plan- Will monitor for active labor Will monitor FHTs Will draw a CMP and LDH If BP and labs require will initiate BP medications Patient may choose pain medication, if desires epidural may have Patient may be up ad thu Patient may get in tub Patient may eat regular diet till decides epidural Plan and anticipate a vaginal delivery 08/16/2020 Routine cares Encourage and support Monitor bleeding closely Plan discharge at 24-48 hours 07/24/2020 Continue routine cares Continue to encourage and support Continue labetalol at home BID To see surjit in clinic next week for BP check up To see Surjit in clinic in six weeks for visit Discharge home today
[2020-08-17] MEDS ORDERED: Acetaminophen/Codeine 300-30 MG Tab PO PRN (10:05)
[2020-08-17] MEDS ORDERED: Acetaminophen/Codeine 300-30 MG Tab PO ONE (16:00)
[2020-08-17] MEDS ORDERED: Labetalol 100 MG Tab PO ONE (17:00)
== END 2020-08-17 18:05 | disposition home or self-care (01) | DRG 560 ==
LOC: JP.OBCHECK 07:00 → JP.OB 07:02 → OBSVTOIN 17:25 → JP.MS 20:48
PROVIDERS: ADMIT Advanced Practice Midwife; ATTEND Advanced Practice Midwife
PROC: 10E0XZZ Delivery of Products of Conception, External Approach (ICD-10-PCS; principal; 2020-08-16)
PROC: 3E0P7VZ Introduction of Hormone into Female Reproductive, Via Natural or Artificial Opening (ICD-10-PCS; 2020-08-16)
PROC: 3E0R3BZ Introduction of Anesthetic Agent into Spinal Canal, Percutaneous Approach (ICD-10-PCS; 2020-08-16)
PROC: 00HU33Z Insertion of Infusion Device into Spinal Canal, Percutaneous Approach (ICD-10-PCS; 2020-08-16)
DX: O13.4 Gestational [pregnancy-induced] hypertension without significant proteinuria, complicating childbirth (principal); Z3A.39 39 weeks gestation of pregnancy; Z37.0 Single live birth
CPT/HCPCS: 36415; 51702; 59409; 76819; 76819-26; 80053; 80305-QW; 81001; 82570; 83615; 84156; 85025; 85460; 86850; 86900; 86901; A9270-GY; J2590; J2790; J2795; J7040; J7120